=== PATIENT | female | born 1955 | race Caucasian/White ===

== ENCOUNTER 2018-10-30 06:29 | Day surgery (SDC) | payer OTHER ==
[2018-10-30] MEDS: SOD CHLORIDE 0.9% 1,000 ML IV (08:52)
[2018-10-30] MEDS: SOD CHLORIDE 0.9% 500 ML (10:33)
[2018-10-30] MEDS: FENTAnyl 50 MCG/ML VIAL (11:11)
[2018-10-30] MEDS: LIDOCAINE 1% (MPF) 5 ML VIAL (11:15)
== END 2018-10-30 14:05 | disposition home or self-care (01) ==
LOC: SDS 06:29
DX: Z85.72 Personal history of non-Hodgkin lymphomas (principal); I10 Essential (primary) hypertension; E11.9 Type 2 diabetes mellitus without complications; E78.00 Pure hypercholesterolemia, unspecified
CPT/HCPCS: 38221; 77012; 88305; 88311; 88313